=== PATIENT | male | born 1990 | race Caucasian/White ===

== ENCOUNTER 2019-06-11 07:17 | Emergency (ER) | payer OTHER ==
[2019-06-11] MEDS ORDERED: HYDROmorphone 1 MG/ML Syringe IVPUSH ONE (07:23)
[2019-06-11] MEDS ORDERED: Metoclopramide 10 MG/2 ML SDV IVPUSH ONE (07:23)
[2019-06-11] MEDS ORDERED: fentaNYL 100 MCG/2 ML SDV IVPUSH ONE (07:28)
[2019-06-11] MEDS ORDERED: Diphtheria,Pertussis(Acell),Tetanus Vaccine 0.5 ML Syringe IM ONE (07:28)
[2019-06-11] MEDS ORDERED: Midazolam 1 MG/ML 5 ML SDV IVPUSH ONE (07:28)
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
[2019-06-11] MEDS ORDERED: Dextrose 5%-0.9% NaCl 1,000 ML IV SCH (07:30)
[2019-06-11] MEDS ORDERED: Midazolam 1 MG/ML 2 ML SDV ONE (07:36)
[2019-06-11] MEDS ORDERED: Iopamidol 612 MG/ML 100 ML Bottle IVPUSH ONE (07:39)
[2019-06-11] MEDS ORDERED: Sodium Chloride 0.9% 10 ML Syringe FLUSH ONE (07:39)
[2019-06-11] MEDS ORDERED: Midazolam 1 MG/ML 2 ML SDV IVPUSH ONE (07:48)
--- NOTE | 2019-06-11 08:40 | CT ---
CT abdomen and pelvis Technique: Multiple axial sections were obtained from above the dome of the diaphragm inferiorly through the pubic symphysis. Intravenous contrast was utilized. No oral contrast has been given. Findings: Visualized lung bases show nothing acute. Liver contains no focal abnormality. Spleen also appears within normal limits. Adrenal glands appear within normal limits without nodule. Kidneys show symmetric contrast enhancement without abnormality being seen. Gallbladder contains no calcified gallstones. Pancreas appears within normal limits. Aorta shows no aneurysm. No retroperitoneal adenopathy or mesenteric abnormalities are seen. No pelvic mass or adenopathy is seen. No free fluid or inflammatory change is seen. Appendix not definitely visualized. Delayed images shows contrast within the distal ureters and within the bladder. Bone window settings were reviewed which showed no acute osseous finding. Impression: 1. Nothing acute is appreciated on CT study of the abdomen and pelvis. Diagnostic code #1
--- NOTE | 2019-06-11 10:58 | CR ---
Chest: AP view of the chest was obtained. Comparison: No prior chest x-rays are available. Heart size and mediastinum are within normal limits for AP technique. Lungs are clear with no acute parenchymal change. Bony structures are grossly intact. Impression: 1. Nothing acute is seen on AP chest x-ray. Diagnostic code #1 This report was dictated in [place] Standard Time
--- NOTE | 2019-06-11 11:07 | CR ---
Left femur: AP and lateral views of the left femur were obtained. Comparison: No prior femur study. No fracture or other bony abnormality is seen. Impression: 1. No abnormality is identified on two-view left femur exam. Diagnostic code #1 This report was dictated in [place] Standard Time
--- NOTE | 2019-06-11 11:22 | CR ---
Left shoulder: Three views of the left shoulder were obtained. Comparison: No prior shoulder study. Acromioclavicular and glenohumeral joints appear within normal limits. No fracture, dislocation or other bony abnormality is seen. Impression: 1. No abnormality is identified on left shoulder study. Diagnostic code #1 This report was dictated in [place] Standard Time
--- NOTE | 2019-06-11 11:22 | CR ---
Right tibia and fibula: AP and lateral views of the right tibia and fibula were obtained. Comparison: No previous study. Fibrous cortical defect is again noted within the proximal tibia. No acute fracture or other bony abnormality is seen. Impression: 1. Nothing acute is seen on two-view right tibia and fibula exam. Diagnostic code #1 This report was dictated in [place] Standard Time
--- NOTE | 2019-06-11 11:43 | CR ---
Right femur: AP and lateral views of the right femur were obtained. Comparison: No prior femur study. Small cystic area is seen within the posterior and proximal tibia which is felt compatible with an incidental fibrous cortical defect. No acute fracture or other bony abnormality is appreciated. Impression: 1. Incidental bone finding as noted above. 2. Nothing acute is seen on right femur exam. Diagnostic code #2 This report was dictated in [place] Standard Time
== END 2019-06-11 09:58 | disposition home or self-care (01) ==
LOC: JD.ED 07:17
DX: S43.102A Unspecified dislocation of left acromioclavicular joint, initial encounter (principal); S80.819A Abrasion, unspecified lower leg, initial encounter; V48.9XXA Unspecified car occupant injured in noncollision transport accident in traffic accident, initial encounter; Y92.410 Unspecified street and highway as the place of occurrence of the external cause
CPT/HCPCS: 36415; 71045; 71045-26; 73030-26-LT; 73030-LT; 73552-26-LT; 73552-26-RT; 73552-LT; 73552-RT; 73590-26-RT; 73590-RT; 74177; 74177-26; 80053; 82150; 85025; 90471; 90715; 99284; J1170; J2765; J7042; Q9967